=== PATIENT | female | born 1940 | race Two or more races ===

== ENCOUNTER → 2023-04-19 | Emergency (ER) | payer OTHER ==
[~2023-04-19] VITALS: Ht 152.4 cm; Wt 81.6 kg
[~2023-04-19] MED LIST: TRAM1TAB98 PO
== END | disposition home or self-care (01) ==
LOC: ER 10:13
DX: S20.219A Contusion of unspecified front wall of thorax, initial encounter (principal); W18.39XA Other fall on same level, initial encounter; Y93.89 Activity, other specified; Y92.89 Other specified places as the place of occurrence of the external cause; Y99.9 Unspecified external cause status; U07.1 COVID-19; Z86.39 Personal history of other endocrine, nutritional and metabolic disease; E11.9 Type 2 diabetes mellitus without complications; I10 Essential (primary) hypertension

== ENCOUNTER 2024-11-07 19:21 | Emergency (ER) | payer OTHER ==
[~2024-11-07] VITALS: Ht 162.6 cm; Wt 68.0 kg
[2024-11-07] MEDS ORDERED: ASPIRIN 325 MG TABLET.EC PO STA (19:50)
[2024-11-07] MEDS ORDERED: COZAAR100 MG PO (19:54)
[2024-11-07] MEDS ORDERED: LEVO-T88 MCG PO (19:54)
[2024-11-07] MEDS ORDERED: HUMULIN 70100 UNIT/1 SUBCUTANEO (19:54)
[2024-11-07] MEDS ORDERED: XARELTO10 M1 PO (19:55)
[2024-11-07] MEDS ORDERED: ROSUVASTATIN CA20 MG PO (19:55)
[2024-11-07] MEDS ORDERED: BD ULTRA-FINE1 EAC2 SUBCUTANEO (19:55)
[2024-11-07] MEDS ORDERED: GABAPENTIN600 MG PO (19:55)
[2024-11-07] MEDS ORDERED: RAYOS5 MG PO (19:55)
[2024-11-07] MEDS ORDERED: EZETIMIBE10 MG PO (19:56)
[2024-11-07] MEDS ORDERED: 0.9 % SODIUM CHLORIDE 1,000 ML IV SCH (20:00)
[2024-11-07 20:13] LABS: HEMOGLOBIN 11.2 g/dL (12.0-15.00); MEAN CELL VOLUME 101.2 fL (80.00-100.00); MEAN CORPUSCULAR HEMOGLOBIN 34.4 pg (27.00-32.0); PLATELET COUNT 332 K/uL (150-450); RED BLOOD COUNT 3.26 M/uL (4.00-6.00); RED CELL DISTRIBUTION WIDTH 13.2 % (11.5-14.5)
[2024-11-07] MEDS ORDERED: ASPIRIN 325 MG TABLET PO STA (20:43)
[2024-11-07 20:57] LABS: INR 1.08; PARTIAL THROMBOPLASTIN TIME 27.3 SECONDS (22.0-34.0); PROTHROMBIN TIME 11.7 SECONDS (9.0-11.5)
[2024-11-07 22:05] LABS: CALCIUM 9.2 mg/dL (8.5-10.1); CREATININE SERUM 1.47 mg/dL (0.55-1.02); GFR 33.95; POTASSIUM 4.06 mEq/L (3.5-5.1)
[2024-11-07] MEDS ORDERED: DEXTROSE 50 % IN WATER 0.5 G/ML DISP.SYRIN IV STA (22:33)
[2024-11-07] MEDS ORDERED: FAMOTIDINE/PF 20 MG in 0.9 % SODIUM CHLORIDE 8 ML IV PUSH STA (23:02)
== END 2024-11-08 03:40 ==
LOC: ER 19:21
PROVIDERS: Emergency Medicine
DX: R07.89 Other chest pain (principal); E16.2 Hypoglycemia, unspecified; I10 Essential (primary) hypertension; E03.8 Other specified hypothyroidism; E11.9 Type 2 diabetes mellitus without complications
CPT/HCPCS: 36415; 71045; 93005; 93041; 94760; 96365; 96366; 99283; J3490; J7030